=== PATIENT | male | born 1955 | race Caucasian/White ===

== ENCOUNTER 2019-01-16 23:46 | Emergency (ER) | payer BC ==
[2019-01-16] MEDS ORDERED: HYDROmorphone 2 MG/ML SDV IVPUSH ONE (23:49)
[2019-01-16] MEDS ORDERED: Ketorolac 30 MG/ML SDV IVPUSH ONE (23:49)
[2019-01-16] MEDS ORDERED: Ondansetron 4 MG/2 ML SDV IVPUSH ONE (23:49)
[2019-01-16] MEDS ORDERED: Sodium Chloride 0.9% 1,000 ML IV ONE (23:50)
[2019-01-16] MEDS ORDERED: Tamsulosin 0.4 MG Cap.ER PO ONE (23:51)
[2019-01-16] MEDS ORDERED: HYDROmorphone 2 MG/ML Syringe IVPUSH ONE (23:53)
--- NOTE | 2019-01-16 23:54 | EDM.PDOC ---
ED HPI GENERAL MEDICAL PROBLEM - General Chief Complaint: Abdominal Pain Stated Complaint: LEFT SIDE PAIN Time Seen by Provider: 01/16/19 23:49 - History of Present Illness INITIAL COMMENTS - FREE TEXT/NARRATIVE: HISTORY AND PHYSICAL: History of present illness: Patient is a 63-year-old white male presents with concern of acute left flank pain patient has nausea with no vomiting patient has history of urolithiasis denies history of diverticulitis Review of systems: As per history of present illness and below otherwise all systems reviewed and negative. Past medical history: As per history of present illness and as reviewed below otherwise noncontributory. Surgical history: As per history of present illness and as reviewed below otherwise noncontributory. Social history: No reported history of drug or alcohol abuse. Family history: As per history of present illness and as reviewed below otherwise noncontributory. Physical exam: HEENT: Atraumatic, normocephalic, pupils reactive, negative for conjunctival pallor or scleral icterus, mucous membranes moist, throat clear, neck supple, nontender, trachea midline. Lungs: Clear to auscultation, breath sounds equal bilaterally, chest nontender. Heart: S1S2, regular, negative for clicks, rubs, or JVD. Abdomen: Soft, nondistended, nontender. Negative for masses or hepatosplenomegaly. Left-sided costovertebral tenderness. Pelvis: Stable nontender. Genitourinary: Deferred. Rectal: Deferred. Extremities: Atraumatic, negative for cords or calf pain. Neurovascular unremarkable. Neuro: Awake, alert, oriented. Cranial nerves II through XII unremarkable. Cerebellum unremarkable. Motor and sensory unremarkable throughout. Exam nonfocal. Diagnostics: CBC CMP UA CT abdomen and pelvis Therapeutics: Normal saline 1 L bolus Dilaudid 1 mg IV Zofran 4 mg IV Flomax 0.4 mg by mouth and Toradol 30 mg IV Impression: #1 acute left flank pain Definitive disposition and diagnosis as appropriate pending reevaluation and review of above. - Related Data Allergies Allergy/AdvReac Type Severity Reaction Status Date / Time No Known Allergies Allergy Verified 01/16/19 23:59 Home Meds: Home Meds Aspirin [Adult Low Dose Aspirin EC] 1 tab PO DAILY 06/30/14 [History] Cinnamon Bark [Cinnamon] 1 tab PO BID 06/30/14 [History] Fish Oil/[place]-3 Fatty Acids [Fish Oil 1,000 MG] 1 tab PO DAILY 06/30/14 [ History] Folic Acid 1 tab PO DAILY 06/30/14 [History] Lisinopril/Hydrochlorothiazide [Lisinopril-Hctz 20-25 mg Tab] 1 tab PO ACBRK 11/01 [History] Metoprolol Tartrate [Lopressor] 1 tab PO BID 06/30/14 [History] Multivitamin [Multi Vitamin Daily] 1 tab PO DAILY 06/30/14 [History] amLODIPine Besylate [Amlodipine Besylate] 1 tab PO BEDTIME 06/30/14 [History] atorvaSTATin Calcium [Atorvastatin Calcium] 1 tab PO BEDTIME 06/30/14 [History] Clopidogrel [Plavix] 75 mg PO DAILY 06/16/15 [History] Lutein [Natural Lutein] 20 mg PO DAILY 06/16/15 [History] Chromium Amino Acid Chelate [Chromium] 500 mcg PO DAILY 01/17/19 [History] Fenofibric Acid (Choline) [Fenofibric Acid] 1 tab PO DAILY 01/17/19 [History] ED ROS GENERAL - Review of Systems Review Of Systems: ROS reveals no pertinent complaints other than HPI. ED EXAM, GENERAL - Physical Exam Exam: See Below (The dictation) Course - Vital Signs Last Recorded V/S: Last Vital Signs Temp 36.6 C 01/16/19 23:46 Pulse 72 01/17/19 00:32 Resp 18 01/17/19 00:32 BP 147/67 H 01/17/19 00:32 Pulse Ox 95 01/17/19 00:32 - Orders/Labs/Meds Labs: Laboratory Tests 01/16/19 01/16/19 01/17/19 Range/Units 22:55 23:50 00:20 WBC 9.49 (4.0-11.0) K/uL RBC 5.38 (4.50-5.90) M/uL Hgb 16.3 (13.0-17.0) g/dL Hct 47.1 (38.0-50.0) % MCV 87.5 (80.0-98.0) fL MCH 30.3 (27.0-32.0) pg MCHC 34.6 (31.0-37.0) g/dL RDW Std Deviation 43.9 (28.0-62.0) fl RDW Coeff of Twin 14 (11.0-15.0) % Plt Count 239 (150-400) K/uL MPV 9.40 (7.40-12.00) fL Neut % (Auto) 43.5 L (48.0-80.0) % Lymph % (Auto) 37.6 (16.0-40.0) % Stone % (Auto) 13.5 (0.0-15.0) % Eos % (Auto) 4.2 (0.0-7.0) % Baso % (Auto) 1.2 (0.0-1.5) % Neut # (Auto) 4.1 (1.4-5.7) K/uL Lymph # (Auto) 3.6 H (0.6-2.4) K/uL Stone # (Auto) 1.3 H (0.0-0.8) K/uL Eos # (Auto) 0.4 (0.0-0.7) K/uL Baso # (Auto) 0.1 (0.0-0.1) K/uL Nucleated RBC % 0.0 /100WBC Nucleated RBCs # 0 K/uL Sodium 138 (136-148) mmol/L Potassium 3.5 (3.5-5.1) mmol/L Chloride 103 (98-107) mmol/L Carbon Dioxide 27.7 (21.0-32.0) mmol/L BUN 24 H (7.0-18.0) mg/dL Creatinine 1.0 (0.8-1.3) mg/dL Est Cr Clr Drug Dosing 80.10 mL/min Estimated GFR (MDRD) > 60.0 ml/min Glucose 218 H (74-106) mg/dL Calcium 9.1 (8.5-10.1) mg/dL Total Bilirubin 0.2 (0.2-1.0) mg/dL AST 17 (15-37) IU/L ALT 30 (14-63) IU/L Alkaline Phosphatase 98 (46-116) U/L Total Protein 7.6 (6.4-8.2) g/dL Albumin 3.7 (3.4-5.0) g/dL Globulin 3.9 (2.6-4.0) g/dL Albumin/Globulin Ratio 0.9 (0.9-1.6) Urine Color YELLOW Urine Appearance CLEAR Urine pH 6.0 (5.0-8.0) Ur Specific [place] 1.020 (1.001-1.035) Urine Protein NEGATIVE (NEGATIVE) mg/dL Urine Glucose (UA) >=1000 (NEGATIVE) mg/dL Urine Ketones NEGATIVE (NEGATIVE) mg/dL Urine Occult Blood TRACE-INTACT H (NEGATIVE) Urine Nitrite NEGATIVE (NEGATIVE) Urine Bilirubin NEGATIVE (NEGATIVE) Urine Urobilinogen 0.2 (<2.0) EU/dL Ur Leukocyte Esterase NEGATIVE (NEGATIVE) Urine RBC 0-3 (0-2/HPF) Urine WBC 0-1 (0-5/HPF) Ur Epithelial Cells RARE (NONE-FEW) Urine Bacteria FEW (NEGATIVE) Urine Mucus LIGHT (NONE-MOD) Meds: Medications Discontinued Medications Generic Name Dose Route Start Last Admin Trade Name Freq PRN Reason Stop Dose Admin Hydromorphone HCl 1 mg 01/16/19 23:56 01/17/19 00:01 Dilaudid IVPUSH 01/16/19 23:57 1 mg ONETIME ONE Administration Sodium Chloride 1,000 mls @ 999 mls/hr 01/16/19 23:50 01/17/19 00:00 Normal Saline IV 01/17/19 00:50 999 mls/hr .Bolus ONE Administration Ketorolac Tromethamine 30 mg 01/16/19 23:49 01/17/19 00:00 Toradol IVPUSH 01/16/19 23:50 30 mg ONETIME ONE Administration Ondansetron HCl 4 mg 01/16/19 23:49 01/17/19 00:00 Zofran IVPUSH 01/16/19 23:50 4 mg ONETIME ONE Administration Tamsulosin HCl 0.4 mg 01/16/19 23:51 01/17/19 00:01 Flomax PO 01/16/19 23:52 0.4 mg ONETIME ONE Administration Departure - Departure Time of Disposition: 01:02 Disposition: Home, Self-Care 01 Condition: Good Clinical Impression: Nephrolithiasis - Discharge Information Forms: ED Department Discharge Additional Instructions: The following information is given to patients seen in the emergency department who are being discharged to home. This information is to outline your options for follow-up care. We provide all patients seen in our emergency department with a follow-up referral. The need for follow-up, as well as the timing and circumstances, are variable depending upon the specifics of your emergency department visit. If you don't have a primary care physician on staff, we will provide you with a referral. We always advise you to contact your personal physician following an emergency department visit to inform them of the circumstance of the visit and for follow-up with them and/or the need for any referrals to a consulting specialist. The emergency department will also refer you to a specialist when appropriate. This referral assures that you have the opportunity for followup care with a specialist. All of these measure are taken in an effort to provide you with optimal care, which includes your followup. Under all circumstances we always encourage you to contact your private physician who remains a resource for coordinating your care. When calling for followup care, please make the office aware that this follow-up is from your recent emergency room visit. If for any reason you are refused follow-up, please contact the [facility] emergency department at and asked to speak to the emergency department charge nurse. LAUREANO [facility] Specialty Care - Urology [address] [place] [id number] Push fluids follow up with urology as discussed return as needed as discussed continue current medications
[2019-01-16] MEDS ORDERED: HYDROmorphone 1 MG/ML Syringe IVPUSH ONE (23:56)
[2019-01-17 00:52] LABS: CHLORIDE,CL 103 mmol/L (98-107); SODIUM,NA 138 mmol/L (136-148)
--- NOTE | 2019-01-17 00:54 | CT ---
INDICATION: LLQ PAIN. HX OF KIDNEY STONES. CT ABDOMEN AND PELVIS WITHOUT CONTRAST TECHNIQUE: Multidetector CT imaging was performed through the abdomen and pelvis without intravenous contrast administration. Coronal and sagittal reconstructions were generated. COMPARISON: None. FINDINGS: Lower chest: Lung bases are clear. Liver: Diffuse fatty infiltration of the liver. Gallbladder and bile ducts: No gallbladder wall thickening or calcified gallstones. No biliary dilation identified. Pancreas: Unremarkable. Spleen: Normal. Adrenals: No nodules or masses. Kidneys, ureters, and urinary bladder: 11 millimeter nonobstructing stone in the lower pole collecting system of the left kidney. Mild dilation of the left kidney collecting system and left renal pelvis, and mild fullness of the left ureter. No ureteral stone identified. Mild left perinephric fat stranding. No bladder mass or definite wall thickening. Gastrointestinal tract: Normal caliber bowel without wall thickening. The appendix is normal. Vascular structures: Normal caliber abdominal aorta with mild aortoiliac atherosclerotic calcifications. Peritoneum: No free air, abscess, or significant free fluid. Lymph nodes: No pathologically enlarged nodes identified. Reproductive organs: No pelvic masses. Bones: Mild spinal degenerative changes. IMPRESSION: 1. Mild dilation of the left kidney collecting system and fullness of the left ureter, with mild left perinephric stranding. These findings may reflect recent passage of a left ureteral stone. Alternatively, but less likely, this could represent left-sided pyelonephritis. Clinical correlation is recommended. 2. Nonobstructing 11 millimeter stone in the lower pole of the left kidney. 3. Nonacute additional findings as detailed above. SUSAN WILLSON MD [employer] Dictated by Kurt Willson MD @ 01/17/2019 12:53:12 AM Dictated by: Kurt Willson MD @ 01/17/2019 00:54:07 (Electronically Signed)
[2019-01-17 01:20] VITALS: BP 125/61
== END 2019-01-17 01:15 | disposition home or self-care (01) ==
LOC: MW.ED 23:46
DX: N20.0 Calculus of kidney (principal); Z79.82 Long term (current) use of aspirin; Z79.899 Other long term (current) drug therapy; Z79.01 Long term (current) use of anticoagulants
CPT/HCPCS: 36415; 74176; 80053; 81001; 85025; 96360; 96374; 96375; 99284; A9270; J1170; J1885; J2405; J7040

== ENCOUNTER 2019-10-14 16:07 | Emergency (ER) | payer BC ==
[2019-10-14 17:56] LABS: BLOOD UREA NITROGEN,BUN 27 mg/dL (7.0-18.0); CARBON DIOXIDE,CO2 25.7 mmol/L (21.0-32.0); CHLORIDE,CL 102 mmol/L (98-107); GLUCOSE RANDOM 140 mg/dL (74-106); POTASSIUM,K 3.7 mmol/L (3.5-5.1); SODIUM,NA 136 mmol/L (136-148)
--- NOTE | 2019-10-14 18:02 | CT ---
INDICATION: Abdominal pain TECHNIQUE: CT abdomen and pelvis without contrast. COMPARISON: 07/09/2019 FINDINGS: Lower chest: A small hiatal hernia. Liver: Mild hepatic steatosis. Spleen: Unremarkable. Pancreas: Edema/fluid and mild stranding adjacent to the pancreatic tail, at least partially related to a left renal process. Gallbladder and bile ducts: Apparent gallbladder sludge. Adrenal glands: Unremarkable. Kidneys: [id number] left hydronephrosis due to a 1.3 x 1.1 x 1.0 cm calculus at the UPJ. A punctate nonobstructive left renal parenchymal calcification. A 1.2 cm left renal low-density lesion again seen, suggestive of a cyst. A partially duplicated right renal collecting system. GI tract: No bowel obstruction. No evidence of appendicitis. No significant pericolonic changes. An ovoid fat attenuation focus with thin peripheral soft tissue density again seen in the anterior left abdomen on image 50, probably sequela of old epiploic appendagitis or prior regional fat inflammation of other etiology. Vascular structures: Atherosclerotic changes. Lymph nodes: A borderline portacaval lymph node which could be reactive in the setting of hepatic steatosis. No abnormally enlarged lymph nodes. Miscellaneous: No free air. Postsurgical scarring in the inguinal regions. Pelvic Organs: Mild bladder wall thickening could be related to underdistention. Grossly stable prostate. Bones: A small sclerotic focus again seen in the right iliac wing, nonspecific. Degenerative changes in the spine with calcified disc protrusions at L1-2 and L2-3. IMPRESSION: Left obstructive uropathy due to a 1.3 cm UPJ calculus. A punctate nonobstructive left renal calcification. Fluid and stranding adjacent to the pancreatic tail is probably related to the left renal process, however correlate with pancreatic enzymes. Hepatic steatosis. Mild bladder wall thickening could be related to under distention. Correlate with urinalysis Dictated by Jose Juan Ojeda MD @ 10/14/2019 6:01:57 PM Please note that all CT scans at this facility use dose modulation, iterative reconstruction, and/or weight-based dosing when appropriate to reduce radiation dose to as low as reasonably achievable. Dictated by: Jose Juan Ojeda MD @ 10/14/2019 18:02:04 (Electronically Signed)
[2019-10-14] MEDS ORDERED: Sulfamethoxazole/Trimethoprim 800-160 MG Tab PO ONE (18:18)
--- NOTE | 2019-10-14 18:24 | CR ---
Indication: Pain. Swelling Technique: Three views of the left thumb Comparison: None Findings: Mild degenerative changes of the left thumb are identified. No fracture or subluxation is identified. A well corticated calcific density is identified along the posterior aspect of the interphalangeal joint space. No radiopaque foreign body. Impression: No radiopaque foreign body. Dictated by Tracy Noriega MD @ Oct 14 2019 6:20PM Signed by Dr. Tracy Noriega @ Oct 14 2019 6:23PM
[2019-10-14] MEDS ORDERED: cefTRIAXone 1 GM Vial IM ONE (18:29)
[2019-10-14] MEDS ORDERED: Lidocaine 1% 4 ML ONE (18:33)
--- NOTE | 2019-10-14 18:34 | EDM.PDOC ---
ED HPI GENERAL MEDICAL PROBLEM - General Chief Complaint: General Stated Complaint: POSSIBLE KIDNEY STONES/HERNIA SURGERY Time Seen by Provider: 10/14/19 18:30 Source of Information: Reports: Patient - History of Present Illness INITIAL COMMENTS - FREE TEXT/NARRATIVE: HISTORY AND PHYSICAL: History of present illness: [] presents with left flank pain 5 out of 10 nonradiating mild nausea no vomiting chills or sweats no fever no chest pain shortness breath headache dizziness palpitation no bowel or urine symptoms History of renal stones similar pain to previous Review of systems: As per history of present illness and below otherwise all systems reviewed and negative. Past medical history: As per history of present illness and as reviewed below otherwise noncontributory. Surgical history: As per history of present illness and as reviewed below otherwise noncontributory. Social history: No reported history of drug or alcohol abuse. Family history: As per history of present illness and as reviewed below otherwise noncontributory. Physical exam: HEENT: Atraumatic, normocephalic, pupils reactive, negative for conjunctival pallor or scleral icterus, mucous membranes moist, throat clear, neck supple, nontender, trachea midline. Lungs: Clear to auscultation, breath sounds equal bilaterally, chest nontender. Heart: S1S2, regular, negative for clicks, rubs, or JVD. Abdomen: Soft, nondistended, nontender. Negative for masses or hepatosplenomegaly. Negative for costovertebral tenderness. Pelvis: Stable nontender. Genitourinary: Deferred. Rectal: Deferred. Extremities: Atraumatic, negative for cords or calf pain. Neurovascular unremarkable. Neuro: Awake, alert, oriented. Cranial nerves II through XII unremarkable. Cerebellum unremarkable. Motor and sensory unremarkable throughout. Exam nonfocal. Diagnostics: [ cbc CMP UA with culture cT abdomen pelvis ] Therapeutics: [ gram Rocephin IM Bactrim double strength I did discuss patient in detail with Dr. carballo She will see the patient in the morning for stent placement She will be calling the patient to schedule the stent placement in the morning he is to be nothing by mouth after midnight ] Impression: [ 1.3 cm UPJ stone Cellulitis ] Definitive disposition and diagnosis as appropriate pending reevaluation and review of above. Left Finger-Thumb Pain Score (Numeric/FACES): 7 - Related Data Allergies Allergy/AdvReac Type Severity Reaction Status Date / Time No Known Allergies Allergy Verified 10/14/19 16:32 Home Meds: Home Meds Cinnamon Bark [Cinnamon] 1 tab PO BID 06/30/14 [History] Fish Oil/[place]-3 Fatty Acids [Fish Oil 1,000 MG] 1 tab PO BEDTIME 06/30/14 [ History] Lisinopril/Hydrochlorothiazide [Lisinopril-Hctz 20-25 mg Tab] 1 tab PO DAILY 11/01 [History] Metoprolol Tartrate [Lopressor] 100 mg PO BID 06/30/14 [History] Multivitamin [Multi Vitamin Daily] 1 tab PO BEDTIME 06/30/14 [History] amLODIPine Besylate [Amlodipine Besylate] 10 mg PO BEDTIME 06/30/14 [History] atorvaSTATin Calcium [Atorvastatin Calcium] 40 mg PO BEDTIME 06/30/14 [History] Clopidogrel [Plavix] 75 mg PO BEDTIME 06/16/15 [History] Lutein [Natural Lutein] 20 mg PO DAILY 06/16/15 [History] Chromium Amino Acid Chelate [Chromium] 500 mcg PO DAILY 01/17/19 [History] Escitalopram [Lexapro] 10 mg PO DAILY 10/14/19 [History] Fenofibric Acid (Choline) [Fenofibric Acid] 135 mg PO DAILY 10/14/19 [History] Ginkgo Biloba 60 mg PO DAILY 10/14/19 [History] Ginseng 100 mg PO DAILY 10/14/19 [History] Past Medical History Cardiovascular History: Reports: Bypass, CAD, High Cholesterol, Hypertension Respiratory History: Reports: None Genitourinary History: Reports: Renal Calculus Musculoskeletal History: Reports: Fracture Other Musculoskeletal History: R ankle Neurological History: Reports: None Psychiatric History: Reports: Anxiety Endocrine/Metabolic History: Reports: Obesity/BMI 30+ Hematologic History: Reports: None Immunologic History: Reports: None Oncologic (Cancer) History: Reports: None Dermatologic History: Reports: None - Infectious Disease History Infectious Disease History: Reports: Chicken Pox - Past Surgical History HEENT Surgical History: Reports: Oral Surgery, Tonsillectomy GI Surgical History: Reports: Colonoscopy, Hernia, Abdominal, Hernia Repair/ Other Male Surgical History: Reports: Lithotripsy (ESWL), Renal Calculus Social & Family History - Family History Family Medical History: Noncontributory - Tobacco Use Smoking Status *Q: Never Smoker - Recreational Drug Use Recreational Drug Use: No ED ROS GENERAL - Review of Systems Review Of Systems: See Below ED EXAM, GENERAL - Physical Exam Exam: See Below Course - Vital Signs Last Recorded V/S: Last Vital Signs Temp 98.0 F 10/14/19 16:27 Pulse 83 10/14/19 16:27 Resp 18 10/14/19 16:27 BP 153/71 H 10/14/19 16:27 Pulse Ox 95 10/14/19 16:27 - Orders/Labs/Meds Orders: Active Orders 24 hr Category Date Time Status CULTURE URINE [RM] Stat Lab 10/14/19 16:49 Received CULTURE WOUND [RM] Stat Lab 10/14/19 17:45 Received UA RFX CHRISTIANO AND CULT IF INDIC [URIN] Stat Lab 10/14/19 16:52 Ordered cefTRIAXone [Rocephin] Med 10/14/19 18:29 Once 1 gm IM ONETIME ONE Labs: Laboratory Tests 10/14/19 10/14/19 10/14/19 Range/Units 16:49 17:10 17:10 WBC 15.55 H (4.0-11.0) K/uL RBC 5.35 (4.50-5.90) M/uL Hgb 15.8 (13.0-17.0) g/dL Hct 45.6 (38.0-50.0) % MCV 85.2 (80.0-98.0) fL MCH 29.5 (27.0-32.0) pg MCHC 34.6 (31.0-37.0) g/dL RDW Std Deviation 43.0 (28.0-62.0) fl RDW Coeff of Twin 14 (11.0-15.0) % Plt Count 231 (150-400) K/uL MPV 9.20 (7.40-12.00) fL Neut % (Auto) 75.1 (48.0-80.0) % Lymph % (Auto) 11.4 L (16.0-40.0) % [place] % (Auto) 12.0 (0.0-15.0) % Eos % (Auto) 1.1 (0.0-7.0) % Baso % (Auto) 0.4 (0.0-1.5) % Neut # (Auto) 11.7 H (1.4-5.7) K/uL Lymph # (Auto) 1.8 (0.6-2.4) K/uL [place] # (Auto) 1.9 H (0.0-0.8) K/uL Eos # (Auto) 0.2 (0.0-0.7) K/uL Baso # (Auto) 0.1 (0.0-0.1) K/uL Nucleated RBC % 0.0 /100WBC Nucleated RBCs # 0 K/uL Sodium 136 (136-148) mmol/L Potassium 3.7 (3.5-5.1) mmol/L Chloride 102 (98-107) mmol/L Carbon Dioxide 25.7 (21.0-32.0) mmol/L BUN 27 H (7.0-18.0) mg/dL Creatinine 0.9 (0.8-1.3) mg/dL Est Cr Clr Drug Dosing 82.33 mL/min Estimated GFR (MDRD) > 60.0 ml/min Glucose 140 H (74-106) mg/dL Calcium 9.5 (8.5-10.1) mg/dL Total Bilirubin 0.5 (0.2-1.0) mg/dL AST 17 (15-37) IU/L ALT 33 (14-63) IU/L Alkaline Phosphatase 76 (46-116) U/L Total Protein 8.2 (6.4-8.2) g/dL Albumin 3.6 (3.4-5.0) g/dL Globulin 4.6 H (2.6-4.0) g/dL Albumin/Globulin Ratio 0.8 L (0.9-1.6) Lipase (73-393) U/L Urine Color YELLOW Urine Appearance SLT CLOUDY Urine pH 5.5 (5.0-8.0) Ur Specific [place] 1.025 (1.001-1.035) Urine Protein TRACE H (NEGATIVE) mg/dL Urine Glucose (UA) NEGATIVE (NEGATIVE) mg/dL Urine Ketones NEGATIVE (NEGATIVE) mg/dL Urine Occult Blood LARGE H (NEGATIVE) Urine Nitrite NEGATIVE (NEGATIVE) Urine Bilirubin NEGATIVE (NEGATIVE) Urine Urobilinogen 0.2 (<2.0) EU/dL Ur Leukocyte Esterase SMALL H (NEGATIVE) Urine RBC 20-30 (0-2/HPF) Urine WBC 4-7 (0-5/HPF) Ur Epithelial Cells RARE (NONE-FEW) Urine Bacteria FEW (NEGATIVE) 10/14/19 Range/Units 17:10 WBC (4.0-11.0) K/uL RBC (4.50-5.90) M/uL Hgb (13.0-17.0) g/dL Hct (38.0-50.0) % MCV (80.0-98.0) fL MCH (27.0-32.0) pg MCHC (31.0-37.0) g/dL RDW Std Deviation (28.0-62.0) fl RDW Coeff of Twin (11.0-15.0) % Plt Count (150-400) K/uL MPV (7.40-12.00) fL Neut % (Auto) (48.0-80.0) % Lymph % (Auto) (16.0-40.0) % [place] % (Auto) (0.0-15.0) % Eos % (Auto) (0.0-7.0) % Baso % (Auto) (0.0-1.5) % Neut # (Auto) (1.4-5.7) K/uL Lymph # (Auto) (0.6-2.4) K/uL [place] # (Auto) (0.0-0.8) K/uL Eos # (Auto) (0.0-0.7) K/uL Baso # (Auto) (0.0-0.1) K/uL Nucleated RBC % /100WBC Nucleated RBCs # K/uL Sodium (136-148) mmol/L Potassium (3.5-5.1) mmol/L Chloride (98-107) mmol/L Carbon Dioxide (21.0-32.0) mmol/L BUN (7.0-18.0) mg/dL Creatinine (0.8-1.3) mg/dL Est Cr Clr Drug Dosing mL/min Estimated GFR (MDRD) ml/min Glucose (74-106) mg/dL Calcium (8.5-10.1) mg/dL Total Bilirubin (0.2-1.0) mg/dL AST (15-37) IU/L ALT (14-63) IU/L Alkaline Phosphatase (46-116) U/L Total Protein (6.4-8.2) g/dL Albumin (3.4-5.0) g/dL Globulin (2.6-4.0) g/dL Albumin/Globulin Ratio (0.9-1.6) Lipase 95 (73-393) U/L Urine Color Urine Appearance Urine pH (5.0-8.0) Ur Specific [place] (1.001-1.035) Urine Protein (NEGATIVE) mg/dL Urine Glucose (UA) (NEGATIVE) mg/dL Urine Ketones (NEGATIVE) mg/dL Urine Occult Blood (NEGATIVE) Urine Nitrite (NEGATIVE) Urine Bilirubin (NEGATIVE) Urine Urobilinogen (<2.0) EU/dL Ur Leukocyte Esterase (NEGATIVE) Urine RBC (0-2/HPF) Urine WBC (0-5/HPF) Ur Epithelial Cells (NONE-FEW) Urine Bacteria (NEGATIVE) Meds: Medications Discontinued Medications Generic Name Dose Route Start Last Admin Trade Name Freq PRN Reason Stop Dose Admin Trimethoprim/Sulfamethoxazole 1 tab 10/14/19 18:18 10/14/19 18:22 Septra Ds PO 10/14/19 18:19 1 tab ONETIME ONE Administration Departure - Departure Time of Disposition: 18:32 Disposition: Home, Self-Care 01 Condition: Good Clinical Impression: Obstruction of ureteropelvic junction (UPJ) due to stone, Cellulitis - Discharge Information Referrals: Yuliya Crum [Primary Care Provider] - Additional Instructions: Dr. freeman urology Jerome will be calling you in the a.m. to schedule stent placement for the obstructing stone Return if symptoms persist or worsen No food or drink after midnight Medication as prescribed The following information is given to patients seen in the emergency department who are being discharged to home. This information is to outline your options for follow-up care. We provide all patients seen in our emergency department with a follow-up referral. The need for follow-up, as well as the timing and circumstances, are variable depending upon the specifics of your emergency department visit. If you don't have a primary care physician on staff, we will provide you with a referral. We always advise you to contact your personal physician following an emergency department visit to inform them of the circumstance of the visit and for follow-up with them and/or the need for any referrals to a consulting specialist. The emergency department will also refer you to a specialist when appropriate. This referral assures that you have the opportunity for follow-up care with a specialist. All of these measure are taken in an effort to provide you with optimal care, which includes your follow-up. Under all circumstances we always encourage you to contact your private physician who remains a resource for coordinating your care. When calling for follow-up care, please make the office aware that this follow-up is from your recent emergency room visit. If for any reason you are refused follow-up, please contact the [facility] emergency department at and asked to speak to the emergency department charge nurse. - My Orders Last 24 Hours: My Active Orders 10/14/19 16:49 CULTURE URINE [RM] Stat 10/14/19 16:52 UA RFX CHRISTIANO AND CULT IF INDIC [URIN] Stat 10/14/19 17:45 CULTURE WOUND [RM] Stat 10/14/19 18:29 cefTRIAXone [Rocephin] 1 gm IM ONETIME ONE - Assessment/Plan Last 24 Hours: My Active Orders 10/14/19 16:49 CULTURE URINE [RM] Stat 10/14/19 16:52 UA RFX CHRISTIANO AND CULT IF INDIC [URIN] Stat 10/14/19 17:45 CULTURE WOUND [RM] Stat 10/14/19 18:29 cefTRIAXone [Rocephin] 1 gm IM ONETIME ONE
[2019-10-14 19:04] VITALS: BP 146/69; PULSE 82
== END 2019-10-14 19:01 | disposition home or self-care (01) ==
LOC: MW.ED 16:07
DX: N13.2 Hydronephrosis with renal and ureteral calculous obstruction (principal); L03.90 Cellulitis, unspecified; E78.00 Pure hypercholesterolemia, unspecified; I10 Essential (primary) hypertension; I25.10 Atherosclerotic heart disease of native coronary artery without angina pectoris; E66.9 Obesity, unspecified; Z79.899 Other long term (current) drug therapy; Z79.02 Long term (current) use of antithrombotics/antiplatelets; Z68.36 Body mass index [BMI] 36.0-36.9, adult
CPT/HCPCS: 36415; 73140; 74176; 80053; 81001; 83690; 85025; 87070; 87086; 96374; 99284; A9270; J0696; 87186

== ENCOUNTER 2021-02-04 17:46 | Emergency (ER) | payer BC ==
[2021-02-04] MEDS ORDERED: Sodium Chloride 0.9% 10 ML SDV IV PRN (17:49)
[2021-02-04] MEDS ORDERED: Sodium Chloride 0.9% 2.5 ML Syringe FLUSH PRN (17:49)
[2021-02-04] MEDS ORDERED: Sodium Chloride 0.9% 10 ML Syringe FLUSH PRN (17:49)
[2021-02-04] MEDS ORDERED: predniSONE 20 MG Tab PO ONE (17:54)
--- NOTE | 2021-02-04 17:59 | EDM.PDOC ---
ED HPI GENERAL MEDICAL PROBLEM - General Chief Complaint: Neuro Symptoms/Deficits Stated Complaint: CANT FEEL RT SIDE OF HIS FACE NUMB Time Seen by Provider: 02/04/21 17:52 Source of Information: Reports: Patient History Limitations: Reports: No Limitations - History of Present Illness INITIAL COMMENTS - FREE TEXT/NARRATIVE: Patient is a 65-year-old male who presents today for right-sided facial numbness and inability to close right eye. 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 When he finished work he decided to the hospital. Patient denies any vision changes any extremity weakness or numbness or other neurologic complaints. Patient has never had this before has not gone camping or had any bug bites. - Related Data Allergies Allergy/AdvReac Type Severity Reaction Status Date / Time No Known Allergies Allergy Verified 02/04/21 18:20 Home Meds: Home Meds Cinnamon Bark [Cinnamon] 1 tab PO BID 06/30/14 [History] Fish Oil/[place]-3 Fatty Acids [Fish Oil 1,000 MG] 1 tab PO BEDTIME 06/30/14 [History] Lisinopril/Hydrochlorothiazide [Lisinopril-Hctz 20-25 mg Tab] 1 tab PO DAILY 06/30/14 [History] Metoprolol Tartrate [Lopressor] 100 mg PO BID 06/30/14 [History] Multivitamin [Multi Vitamin Daily] 1 tab PO BEDTIME 06/30/14 [History] amLODIPine Besylate [Amlodipine Besylate] 10 mg PO BEDTIME 06/30/14 [History] atorvaSTATin Calcium [Atorvastatin Calcium] 40 mg PO BEDTIME 06/30/14 [History] Clopidogrel [Plavix] 75 mg PO BEDTIME 06/16/15 [History] Lutein [Natural Lutein] 20 mg PO DAILY 06/16/15 [History] Chromium Amino Acid Chelate [Chromium] 500 mcg PO DAILY 01/17/19 [History] Escitalopram [Lexapro] 10 mg PO DAILY 10/14/19 [History] Fenofibric Acid (Choline) [Fenofibric Acid] 135 mg PO DAILY 10/14/19 [History] Ginkgo Biloba 60 mg PO DAILY 10/14/19 [History] Ginseng 100 mg PO DAILY 10/14/19 [History] Dextran 70/Hypromellose [Artificial Tears Eye Drops] 15 ml OP Q4HR 7 Days #1 drops 02/04/21 [Rx] predniSONE 60 mg PO DAILYBH 6 Days #18 tab 02/04/21 [Rx] Past Medical History Cardiovascular History: Reports: Bypass, CAD, High Cholesterol, Hypertension Respiratory History: Reports: None Genitourinary History: Reports: Renal Calculus Musculoskeletal History: Reports: Fracture Other Musculoskeletal History: R ankle Neurological History: Reports: None Psychiatric History: Reports: Anxiety Endocrine/Metabolic History: Reports: Obesity/BMI 30+ Hematologic History: Reports: None Immunologic History: Reports: None Oncologic (Cancer) History: Reports: None Dermatologic History: Reports: None - Infectious Disease History Infectious Disease History: Reports: Chicken Pox - Past Surgical History HEENT Surgical History: Reports: Oral Surgery, Tonsillectomy GI Surgical History: Reports: Colonoscopy, Hernia, Abdominal, Hernia Repair/Other Male Surgical History: Reports: Lithotripsy (ESWL), Renal Calculus Social & Family History - Family History Family Medical History: No Pertinent Family History ED ROS GENERAL - Review of Systems Review Of Systems: See Below Constitutional: Reports: No Symptoms HEENT: Reports: No Symptoms Respiratory: Reports: No Symptoms Cardiovascular: Reports: No Symptoms Endocrine: Reports: No Symptoms GI/Abdominal: Reports: No Symptoms : Reports: No Symptoms Musculoskeletal: Reports: No Symptoms Skin: Reports: No Symptoms Neurological: Reports: Numbness Psychiatric: Reports: No Symptoms Hematologic/Lymphatic: Reports: No Symptoms Immunologic: Reports: No Symptoms ED EXAM, NEURO - Physical Exam Exam: See Below Exam Limited By: No Limitations General Appearance: Alert, WD/WN, No Apparent Distress Eye Exam: Bilateral Eye: EOMI, PERRL Throat/Mouth: Normal Inspection, Normal Oropharynx Head Exam: Atraumatic, Normocephalic Neck: Normal Inspection Respiratory/Chest: No Respiratory Distress, Lungs Clear Cardiovascular: Normal Peripheral Pulses, Regular Rate, Rhythm, No Edema GI/Abdominal: Normal Bowel Sounds, Soft, Non-Tender Neurological: Alert, Normal Mood/Affect, Normal Dorsiflexion, CN II-XII Intact, Normal Gait, Normal Reflexes, No Motor/Sensory Deficits, Oriented x 3, Other (right eye does not close completely, right forehead does not move completely) #1 Interpretation EKG Date: 02/04/21 Time: 17:50 Rhythm: NSR Rate (Beats/Min): 81 ST-T: Normal Course - Vital Signs Last Recorded V/S: Last Vital Signs Temp 97 F 02/04/21 17:49 Pulse 85 02/04/21 17:49 Resp 16 02/04/21 17:49 BP 231/102 H 02/04/21 17:49 Pulse Ox 97 02/04/21 17:49 - Orders/Labs/Meds Orders: Active Orders 24 hr Category Date Time Status Assess Neurological Status [RC] ASDIRECTED Care 02/04/21 17:49 Active Cardiac Monitoring [RC] . DIRECTED Care 02/04/21 17:49 Active EKG Documentation Completion [RC] STAT Care 02/04/21 17:49 Active Initiate Acute Stroke Protocol [RC] STAT Care 02/04/21 17:49 Active NIH Stroke Scale [RC] ASDIRECTED Care 02/04/21 17:49 Active Oxygen Therapy [RC] ASDIRECTED Care 02/04/21 17:49 Active UA W/MICROSCOPIC [URIN] Stat Lab 02/04/21 17:50 Ordered Sodium Chloride 0.9% [Normal Saline] Med 02/04/21 17:49 Active 10 ml IV ASDIRECTED PRN Sodium Chloride 0.9% [Saline Flush] Med 02/04/21 17:49 Active 10 ml FLUSH ASDIRECTED PRN Sodium Chloride 0.9% [Saline Flush] Med 02/04/21 17:49 Active 2.5 ml FLUSH ASDIRECTED PRN Peripheral IV Insertion Adult [OM.PC] Stat Oth 02/04/21 17:49 Ordered Medication Orders Sodium Chloride (Sodium Chloride 0.9% 10 Ml Syringe) 10 ml FLUSH ASDIRECTED PRN PRN Reason: Keep Vein Open Last Admin: 02/04/21 18:15 Dose: 10 ml Documented by: HANSMAC Sodium Chloride (Sodium Chloride 0.9% 2.5 Ml Syringe) 2.5 ml FLUSH ASDIRECTED PRN PRN Reason: Keep Vein Open Last Admin: 02/04/21 18:15 Dose: 2.5 ml Documented by: HANSMAC Sodium Chloride (Sodium Chloride 0.9% 10 Ml Sdv) 10 ml IV ASDIRECTED PRN PRN Reason: IV Use Labs: Laboratory Tests 02/04/21 02/04/21 02/04/21 Range/Units 17:56 17:56 17:56 WBC 9.05 (4.0-11.0) K/uL RBC 5.84 (4.50-5.90) M/uL Hgb 17.6 H (13.0-17.0) g/dL Hct 50.1 H (38.0-50.0) % MCV 85.8 (80.0-98.0) fL MCH 30.1 (27.0-32.0) pg MCHC 35.1 (31.0-37.0) g/dL RDW Std Deviation 42.5 (28.0-62.0) fl RDW Coeff of [place] 14 (11.0-15.0) % Plt Count 234 (150-400) K/uL MPV 9.70 (7.40-12.00) fL Neut % (Auto) 39.8 L (48.0-80.0) % Lymph % (Auto) 40.0 (16.0-40.0) % [place] % (Auto) 13.8 (0.0-15.0) % Eos % (Auto) 5.3 (0.0-7.0) % Baso % (Auto) 1.1 (0.0-1.5) % Neut # (Auto) 3.6 (1.4-5.7) K/uL Lymph # (Auto) 3.6 H (0.6-2.4) K/uL [place] # (Auto) 1.3 H (0.0-0.8) K/uL Eos # (Auto) 0.5 (0.0-0.7) K/uL Baso # (Auto) 0.1 (0.0-0.1) K/uL Nucleated RBC % 0.0 /100WBC Nucleated RBCs # 0 K/uL INR 1.03 APTT 23.6 (18.6-31.3) SEC Sodium 136 (136-148) mmol/L Potassium 3.8 (3.5-5.1) mmol/L Chloride 98 (98-107) mmol/L Carbon Dioxide 23.6 (21.0-32.0) mmol/L BUN 17 (7.0-18.0) mg/dL Creatinine 1.0 (0.8-1.3) mg/dL Est Cr Clr Drug Dosing 68.23 mL/min Estimated GFR (MDRD) > 60.0 ml/min Glucose 347 H (74-106) mg/dL Calcium 9.5 (8.5-10.1) mg/dL Total Bilirubin 0.4 (0.2-1.0) mg/dL AST 20 (15-37) IU/L ALT 49 (14-63) IU/L Alkaline Phosphatase 121 H (46-116) U/L Troponin I < 0.050 (0.000-0.056) ng/mL Total Protein 8.5 H (6.4-8.2) g/dL Albumin 4.2 (3.4-5.0) g/dL Globulin 4.3 H (2.6-4.0) g/dL Albumin/Globulin Ratio 1.0 (0.9-1.6) TSH 3rd Generation 2.23 (0.36-3.74) uIU/mL Meds: Medications Generic Name Dose Route Start Last Admin Trade Name Freq PRN Reason Stop Dose Admin Sodium Chloride 10 ml 02/04/21 17:49 02/04/21 18:15 Sodium Chloride 0.9% 10 Ml Syringe FLUSH 10 ml ASDIRECTED PRN Administration Keep Vein Open Sodium Chloride 2.5 ml 02/04/21 17:49 02/04/21 18:15 Sodium Chloride 0.9% 2.5 Ml Syringe FLUSH 2.5 ml ASDIRECTED PRN Administration Keep Vein Open Sodium Chloride 10 ml 02/04/21 17:49 Sodium Chloride 0.9% 10 Ml Sdv IV ASDIRECTED PRN IV Use Discontinued Medications Generic Name Dose Route Start Last Admin Trade Name Freq PRN Reason Stop Dose Admin Prednisone 60 mg 02/04/21 17:54 02/04/21 18:14 Prednisone 20 Mg Tab PO 02/04/21 17:55 60 mg ONETIME ONE Administration - Re-Assessments/Exams Free Text/Narrative Re-Assessment/Exam: 02/04/21 18:55 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 Patient understands the diagnosis and is okay for discharge. Departure - Departure Time of Disposition: 18:55 Disposition: Home, Self-Care 01 Condition: Good Clinical Impression: Armstrong's palsy - Discharge Information *PRESCRIPTION DRUG MONITORING PROGRAM REVIEWED*: Not Applicable *COPY OF PRESCRIPTION DRUG MONITORING REPORT IN PATIENT DONNA: Not Applicable Prescriptions: Dextran 70/Hypromellose [Artificial Tears Eye Drops] 15 ml OP Q4HR 7 Days #1 drops predniSONE 60 mg PO DAILYBH 6 Days #18 tab Instructions: Armstrong Palsy, Adult Referrals: Iona Arauz MD [Primary Care Provider] - Forms: ED Department Discharge Additional Instructions: The following information is given to patients seen in the emergency department who are being discharged to home. This information is to outline your options for follow-up care. We provide all patients seen in our emergency department with a follow-up referral. The need for follow-up, as well as the timing and circumstances, are variable depending upon the specifics of your emergency department visit. If you don't have a primary care physician on staff, we will provide you with a referral. We always advise you to contact your personal physician following an emergency department visit to inform them of the circumstance of the visit and for follow-up with them and/or the need for any referrals to a consulting specialist. The emergency department will also refer you to a specialist when appropriate. This referral assures that you have the opportunity for follow-up care with a specialist. All of these measure are taken in an effort to provide you with optimal care, which includes your follow-up. Under all circumstances we always encourage you to contact your private physician who remains a resource for coordinating your care. When calling for follow-up care, please make the office aware that this follow-up is from your recent emergency room visit. If for any reason you are refused follow-up, please contact the [facility] Emergency Department at and asked to speak to the emergency department charge nurse. Please follow up with your primary care physician. If you do not have a primary care physician, see below: [facility] [address] [place] [id number] [facility] [address] [place] [id number] Please follow-up with a primary animal care attendant at the finish the course. Take the steroids for the next 6 days. It may take some time for you to regain the sensation back in your face. We also want you to apply a piece of tape at night to help "dry visualized is open can become dry. Also place eyedrops in the eye because it may be difficult for you to blink while surface Armstrong's palsy. If you have any change in vision numbness weakness in your extremities please return to the ED immediately. Sepsis Event Note (ED) - Focused Exam Vital Signs: Vital Signs Temp Pulse Resp BP Pulse Ox Pulse Ox 02/04/21 17:49 97 F 85 16 231/102 H 97 97 - Assessment/Plan Plan: Patient is a 62-year-old male presents today with right-sided facial numbness. Patient seems to have possible Armstrong's palsy instead of stroke. Patient has no vision change or other neurologic complaints. Will start patient on steroids. Patient already has CT head will wait for imaging return.
--- NOTE | 2021-02-04 18:28 | CT ---
INDICATION: Facial droop. TECHNIQUE: CT of the head without contrast. Coronal and sagittal reformats are included. COMPARISON: None. FINDINGS: No CT evidence of acute cortical infarct. No loss of chacon white matter differentiation. No hyperdense vessels to suggest intracranial thrombus. No acute intracranial hemorrhage. No mass effect or midline shift. No hydrocephalus or extra-axial collections. Mild generalized parenchymal volume loss. White-matter hypoattenuation, typical for chronic microvascular ischemic changes. No acute osseous abnormalities. Mastoid air cells and paranasal sinuses are clear. Normal soft tissues. IMPRESSION: IMPRESSION:1. No CT evidence of acute cortical infarct. No acute intracranial hemorrhage. No other acute intracranial findings. Please note that all CT scans at this facility use dose modulation, iterative reconstruction, and/or weight-based dosing when appropriate to reduce radiation dose to as low as reasonably achievable. Dictated by Eloy Marquez MD @ Feb 04 2021 6:24PM Signed by Dr. Eloy Marquez @ Feb 04 2021 6:26PM
[2021-02-04 18:47] LABS: BLOOD UREA NITROGEN,BUN 17 mg/dL (7.0-18.0); CARBON DIOXIDE,CO2 23.6 mmol/L (21.0-32.0); CHLORIDE,CL 98 mmol/L (98-107); GLUCOSE RANDOM 347 mg/dL (74-106); POTASSIUM,K 3.8 mmol/L (3.5-5.1); SODIUM,NA 136 mmol/L (136-148)
[2021-02-04 23:46] VITALS: BP 162/78; PULSE 75
== END 2021-02-04 19:17 | disposition home or self-care (01) ==
LOC: MW.ED 17:46
DX: G51.0 Bell's palsy (principal); R73.9 Hyperglycemia, unspecified; I25.10 Atherosclerotic heart disease of native coronary artery without angina pectoris; E78.00 Pure hypercholesterolemia, unspecified; I10 Essential (primary) hypertension; E66.9 Obesity, unspecified; Z68.41 Body mass index [BMI] 40.0-44.9, adult; Z79.02 Long term (current) use of antithrombotics/antiplatelets; Z79.899 Other long term (current) drug therapy
CPT/HCPCS: 36415; 70450; 80053; 84443; 84484; 85025; 85610; 85730; 93005; 99284; A9270; 93010

== ENCOUNTER 2021-07-05 06:26 | Day surgery (SDC) | payer BC ==
[~2021-07-05 06:26] MED LIST: Lactated Ringers 1,000 ML IV SCH; Sodium Chloride 0.9% 10 ML SDV IV PRN; Sodium Chloride 0.9% 10 ML Syringe FLUSH PRN; Sodium Chloride 0.9% 2.5 ML Syringe FLUSH PRN
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
[2021-07-05] MEDS ORDERED: propofoL 50 ML ONE (07:21)
[2021-07-05] MEDS ORDERED: Lidocaine 2% 5 ML SDV ONE (07:26)
--- NOTE | 2021-07-05 08:33 | PCM.OPNOTE ---
- General Post-Op/Procedure Note Date of Surgery/Procedure: 07/05/21 Operative Procedure(s): Screening colonoscopy Findings: Grade IV hemorrhoids Pre Op Diagnosis: Screening colonoscopy Post-Op Diagnosis: Grade IV hemorrhoids Anesthesia Technique: CANDELARIA Primary Surgeon: Manuela Jarquin Condition: Good
--- NOTE | 2021-07-05 08:34 | PCM.POSTAN ---
POST ANESTHESIA ASSESSMENT - MENTAL STATUS Mental Status: Somnolent - VITAL SIGNS Vital Signs: Last Vital Signs Temp 97.5 F 07/05/21 06:45 Pulse 79 07/05/21 06:45 Resp 16 07/05/21 06:45 BP 152/77 H 07/05/21 06:45 Pulse Ox 97 07/05/21 06:45 - RESPIRATORY Respiratory Status: Respiratory Rate WNL, Airway Patent, O2 Saturation Stable - CARDIOVASCULAR CV Status: Pulse Rate WNL, Blood Pressure Stable - GASTROINTESTINAL GI Status: No Symptoms - PAIN Free Text/Narrative:: Resting comfortably - POST OP HYDRATION Hydration Status: Adequate & Stable
--- NOTE | 2021-07-05 08:48 | PCM48HPAN ---
Post Anesthesia Note - EVALUATION WITHIN 48HRS OF ANESTHETIC Vital Signs in Normal Range: Yes Patient Participated in Evaluation: Yes Respiratory Function Stable: Yes Airway Patent: Yes Cardiovascular Function Stable: Yes Hydration Status Stable: Yes Pain Control Satisfactory: Yes Nausea and Vomiting Control Satisfactory: Yes Mental Status Recovered: Yes Vital Signs: Last Vital Signs Temp 97.5 F 07/05/21 06:45 Pulse 79 07/05/21 06:45 Resp 16 07/05/21 06:45 BP 152/77 H 07/05/21 06:45 Pulse Ox 97 07/05/21 06:45 - COMMENTS/OBSERVATIONS Free Text/Narrative:: Pt doing well post-op. VSS. No apparent anesthetic complications. Dr. Rusty Trotter
[2021-07-05 09:16] VITALS: BP 117/58; PULSE 71
--- NOTE | 2021-07-05 09:29 | OR ---
SURGEON: MANUELA JARQUIN MD DATE OF PROCEDURE: 07/05/2021 PREOPERATIVE DIAGNOSIS: Screening colonoscopy. POSTOPERATIVE DIAGNOSIS: Screening colonoscopy. PROCEDURE PERFORMED: Screening colonoscopy. PRIMARY SURGEON: Manuela Jarquin MD ANESTHESIA: MAC. INSTRUMENT USED: Olympus colonoscope. EXTENT OF EXAM: To the cecum. PREPARATION: Good. LIMITATIONS: None. INDICATIONS FOR EXAMINATION: The patient is a 66-year-old male who presents for screening colonoscopy. He had 1 approximately 10 years ago. He is unsure if he had polyps or not. The patient and I discussed the need for repeat colonoscopy. I explained the procedure, expected perioperative course, and the risks. He verbalized understanding and wishes to proceed. PROCEDURE IN DETAIL: The patient was brought to the endoscopy suite and placed in the left lateral decubitus position. A time-out was completed verifying the patient's name, age, date of , allergies, and procedure to be performed. Monitored anesthesia care was induced and continuous oxygen was provided via nasal cannula throughout the procedure. After adequate sedation was achieved, a digital rectal exam was performed. This exam revealed grade 4 hemorrhoids. A well-lubricated colonoscope was inserted in the rectum and advanced under direct visualization to the level of the cecum. The cecum was identified by both visual and anatomic landmarks. A photograph was taken of the cecal cap as well. However, I was unable to retroflex the scope within the cecum due to looping of the scope more proximally. The scope was then fully withdrawn while examining the color, texture, anatomy, and integrity of mucosa from the cecum to the anal canal. A small amount of liquid stool was found throughout the colon. This was irrigated and suctioned down. I was able to get a good look at the mucosa. There were no abnormalities identified. The scope was then brought into the rectum and retroflexed to allow visualization of the anal canal opening. Again, I noted enlarged internal hemorrhoids. A photograph of this was taken. The scope was straightened out and fully withdrawn. The cecum to anus time was 12 minutes. The patient tolerated the procedure well and was transferred to the PACU in stable condition. ENDOSCOPIC DIAGNOSIS: Grade 4 hemorrhoids. RECOMMENDATIONS: I will visit with the patient in the postoperative area regarding hemorrhoidal disease. Repeat colonoscopy in 10 years. ARACELI / NATE /[id number]
== END 2021-07-05 09:14 | disposition home or self-care (01) ==
LOC: MW.SDS 06:26
PROVIDERS: ATTEND Surgery
DX: Z12.11 Encounter for screening for malignant neoplasm of colon (principal); K64.3 Fourth degree hemorrhoids; I25.10 Atherosclerotic heart disease of native coronary artery without angina pectoris; E78.00 Pure hypercholesterolemia, unspecified; I10 Essential (primary) hypertension; E11.9 Type 2 diabetes mellitus without complications; E55.9 Vitamin D deficiency, unspecified; E66.9 Obesity, unspecified; Z68.35 Body mass index [BMI] 35.0-35.9, adult; Z79.84 Long term (current) use of oral hypoglycemic drugs; Z79.899 Other long term (current) drug therapy
CPT/HCPCS: 45378; 82947; J2704; J7120; 00812

== ENCOUNTER 2023-10-17 23:07 | Emergency (ER) | payer MEDICARE, BC ==
[2023-10-17] MEDS ORDERED: Ondansetron 4 MG/2 ML SDV IVPUSH STA (23:35)
[2023-10-17] MEDS ORDERED: Ketorolac 30 MG/ML SDV IVPUSH STA (23:37)
[2023-10-18 00:28] LABS: BASOPHILS ABSOLUTE AUTO 0.04 K/uL (0.00-0.20); BASOPHILS PERCENT AUTO 0.4 % (0.0-1.0); EOSINOPHILS ABSOLUTE AUTO 0.14 K/uL (0.00-0.45); EOSINOPHILS PERCENT AUTO 1.4 % (0.0-6.0); HEMATOCRIT 52.6 % (42.0-52.0); HEMOGLOBIN 18.3 g/dL (14.0-18.0); IMMATURE GRAN ABSOLUTE AUTO 0.03 K/uL (0.00-0.05); IMMATURE GRAN PERCENT AUTO 0.3 % (0.0-0.4); LYMPHOCYTES ABSOLUTE AUTO 0.56 K/uL (1.00-4.80); LYMPHOCYTES PERCENT AUTO 5.7 % (24.0-44.0); MEAN CORPUSCULAR HEMOGLOBIN 30.7 pg (28.0-32.0); MEAN CORPUSCULAR HGB CONC 34.8 g/dL (32.0-36.0); MEAN CORPUSCULAR VOLUME 88.1 fL (83.0-99.0); MEAN PLATELET VOLUME 8.8 fL (9.4-12.4); MONOCYTES ABSOLUTE AUTO 0.89 K/uL (0.00-0.80); MONOCYTES PERCENT AUTO 9.1 % (0.0-8.0); NEUTROPHILS ABSOLUTE AUTO 8.09 K/uL (1.80-7.70); NEUTROPHILS PERCENT AUTO 83.1 % (41.0-71.0); PLATELET COUNT,PLT 196 K/uL (150-400); RED BLOOD CELL COUNT 5.97 M/uL (4.52-5.90); WHITE BLOOD CELL COUNT,WBC 9.75 K/uL (3.9-11.3)
[2023-10-18 00:55] LABS: A/G RATIO 0.9 (0.9-1.6); ALBUMIN 3.9 g/dL (3.4-5.0); BILIRUBIN TOTAL 0.8 mg/dL (0.2-1.0); CALCIUM 9.6 mg/dL (8.5-10.1); CARBON DIOXIDE,CO2 27.6 mmol/L (21.0-32.0); CREATININE 0.9 mg/dL (0.8-1.3); EST CRCL DRUG DOSING (CG) 72.86 mL/min; POTASSIUM,K 3.7 mmol/L (3.5-5.1); PROTEIN TOTAL,TP 8.1 g/dL (6.4-8.2)
[2023-10-18 01:05] LABS: APPEARANCE,URINE CLOUDY; COLOR,URINE BROWN; GLUCOSE,URINE >=1000 mg/dL (NEGATIVE); KETONES,URINE 40 mg/dL (NEGATIVE); LEUKOCYTE ESTERASE,URINE NEGATIVE (NEGATIVE); NITRITE,URINE NEGATIVE (NEGATIVE); OCCULT BLOOD,URINE MODERATE (NEGATIVE); PH,URINE 5.5 (5.0-8.0); PROTEIN,URINE 30 mg/dL (NEGATIVE); UROBILINOGEN,URINE 0.2 EU/dL (<2.0)
[2023-10-18 01:06] LABS: BILIRUBIN,URINE SMALL (NEGATIVE)
[2023-10-18 01:13] LABS: BACTERIA,URINE 1+ (NEGATIVE); EPITHELIAL CELLS,URINE RARE (NONE-FEW); RBC,URINE TOO NUMEROUS TO CT (0-2/HPF)
[2023-10-18] MEDS ORDERED: Iopamidol 755 Mg/ML 100 ML Bottle IVPUSH ONE (01:22)
[2023-10-18] MEDS ORDERED: cefTRIAXone 1 GM in Sodium Chloride 0.9% 50 ML IV ONE (02:25)
[2023-10-18 03:08] VITALS: BP 132/76; PULSE 72
== END 2023-10-18 03:38 | disposition home or self-care (01) ==
LOC: MW.ED 23:07
DX: N39.0 Urinary tract infection, site not specified (principal); N20.0 Calculus of kidney; E78.00 Pure hypercholesterolemia, unspecified; I10 Essential (primary) hypertension; Z79.899 Other long term (current) drug therapy; E66.9 Obesity, unspecified; Z68.34 Body mass index [BMI] 34.0-34.9, adult
CPT/HCPCS: 36415; 74177; 80053; 81001; 85025; 96365; 96375; 99284; J0696; J1885; J2405; J3490; Q9967

== ENCOUNTER 2025-09-13 06:47 | Emergency (ER) | payer MEDICARE, BC ==
[2025-09-13] MEDS ORDERED: Sodium Chloride 0.9% 2.5 ML Syringe FLUSH PRN (06:59)
[2025-09-13] MEDS ORDERED: Sodium Chloride 0.9% 10 ML Syringe FLUSH PRN (06:59)
[2025-09-13 07:19] LABS: MEAN PLATELET VOLUME 9.6 fL (9.4-12.4); NRBC ABSOLUTE 0.00 K/uL (0.00-0.02); NRBC PERCENT 0.0 /100WBC (0.0-0.2); PLATELET COUNT,PLT 185 K/uL (150-400); RED BLOOD CELL COUNT 4.71 M/uL (4.52-5.90); WHITE BLOOD CELL COUNT,WBC 13.59 K/uL (3.9-11.3)
[2025-09-13 07:32] LABS: INR 1.0 (0.86-1.11); PTT,PARTIAL THROMBOPLSTIN TIME 25.4 SEC (23.9-30.7)
[2025-09-13] MEDS: Magnesium Sulfate 2 GM/50 mL 2 GM in Premix Bag 1 BAG IV ONE (07:56)
[2025-09-13 07:58] LABS: EOSINOPHILS ABSOLUTE MAN 0.41 K/uL (0.00-0.45); EOSINOPHILS PERCENT MAN 3 % (0-6); LYMPHOCYTES ABSOLUTE MAN 2.45 K/uL (1.00-4.80); LYMPHOCYTES PERCENT MAN 18 % (24-44); MONOCYTES ABSOLUTE MAN 1.49 K/uL (0.00-0.80); MONOCYTES PERCENT MAN 11 % (0-8); SEG NEUTROPHILS ABSOLUTE MAN 9.24 K/uL (1.80-7.70); SEG NEUTROPHILS PERCENT MAN 68 % (41-71)
[2025-09-13 07:59] LABS: A/G RATIO 0.8 (0.9-1.6); ALANINE AMINOTRANSFERASE,ALT 25 IU/L (14-63); ASPARTATE AMNIOTRANSFERASE,AST 24 IU/L (15-37); BILIRUBIN TOTAL 0.5 mg/dL (0.2-1.0); BLOOD UREA NITROGEN,BUN 31 mg/dL (7.0-18.0); CARBON DIOXIDE,CO2 24.7 mmol/L (21.0-32.0); CHLORIDE,CL 105 mmol/L (98-107); CREATININE 1.0 mg/dL (0.8-1.3); GLUCOSE RANDOM 186 mg/dL (74-106); POTASSIUM,K 4.5 mmol/L (3.5-5.1); PROTEIN TOTAL,TP 6.9 g/dL (6.4-8.2); SODIUM,NA 139 mmol/L (136-148)
[2025-09-13 08:02] LABS: ESTIMATED GFR 82 mL/min (>60)
[2025-09-13 08:11] LABS: LACTIC ACID 1.7 mmol/L (0.4-2.0)
[2025-09-13 08:20] LABS: PRO B-TYPE NATRIUR PEPT,BNPPRO 2366 pg/mL (0-125)
[2025-09-13] MEDS: Iopamidol 755 Mg/ML 100 ML Bottle IVPUSH ONE (09:05)
[2025-09-13] MEDS: Calcium Gluconate 10% 1 GM/10 ML SDV IVPUSH ONE (11:33)
[2025-09-14 06:57] VITALS: BP 152/53; PULSE 44
== END 2025-09-13 12:50 ==
LOC: MW.ED 06:47
DX: I45.9 Conduction disorder, unspecified (principal); R00.1 Bradycardia, unspecified; R79.89 Other specified abnormal findings of blood chemistry
CPT/HCPCS: 36410; 36415; 71045; 71275; 80053; 83605; 83735; 83880; 84484; 85025; 85610; 85730; 93005; 96365; 96375; 99285; J0612; J2765; J3475; Q9967; 93010; J1610

== ENCOUNTER 2025-09-23 18:38 | Emergency (ER) | payer MEDICARE, BC ==
[2025-09-23 19:26] LABS: MEAN PLATELET VOLUME 8.3 fL (9.4-12.4); NRBC ABSOLUTE 0.00 K/uL (0.00-0.02); NRBC PERCENT 0.0 /100WBC (0.0-0.2); PLATELET COUNT,PLT 385 K/uL (150-400); RED BLOOD CELL COUNT 5.71 M/uL (4.52-5.90); WHITE BLOOD CELL COUNT,WBC 13.67 K/uL (3.9-11.3)
[2025-09-23] MEDS: Ondansetron 4 MG/2 ML SDV IVPUSH ONE (19:26)
[2025-09-23 20:06] LABS: BASOPHILS ABSOLUTE MAN 0.14 K/uL (0.00-0.20); BASOPHILS PERCENT MAN 1 % (0-1); EOSINOPHILS ABSOLUTE MAN 0.27 K/uL (0.00-0.45); EOSINOPHILS PERCENT MAN 2 % (0-6); LYMPHOCYTES ABSOLUTE MAN 3.28 K/uL (1.00-4.80); LYMPHOCYTES PERCENT MAN 24 % (24-44); MONOCYTES ABSOLUTE MAN 1.78 K/uL (0.00-0.80); MONOCYTES PERCENT MAN 13 % (0-8); SEG NEUTROPHILS ABSOLUTE MAN 8.20 K/uL (1.80-7.70); SEG NEUTROPHILS PERCENT MAN 60 % (41-71)
[2025-09-23 20:26] LABS: TSH ULTRASENSITIVE 2.23 uIU/mL (0.36-3.74)
[2025-09-23 20:27] LABS: A/G RATIO 0.8 (0.9-1.6); ALANINE AMINOTRANSFERASE,ALT 27 IU/L (14-63); ASPARTATE AMNIOTRANSFERASE,AST 25 IU/L (15-37); BILIRUBIN TOTAL 0.4 mg/dL (0.2-1.0); BLOOD UREA NITROGEN,BUN 37 mg/dL (7.0-18.0); CARBON DIOXIDE,CO2 28.9 mmol/L (21.0-32.0); CHLORIDE,CL 98 mmol/L (98-107); CREATININE 1.0 mg/dL (0.8-1.3); GLUCOSE RANDOM 139 mg/dL (74-106); POTASSIUM,K 3.6 mmol/L (3.5-5.1); PRO B-TYPE NATRIUR PEPT,BNPPRO 288 pg/mL (0-125); PROTEIN TOTAL,TP 8.5 g/dL (6.4-8.2); SODIUM,NA 138 mmol/L (136-148)
[2025-09-23 20:30] LABS: ESTIMATED GFR 82 mL/min (>60); ETHANOL BLOOD MEDICAL < 3.0 mg/dL
[2025-09-23 21:05] LABS: APPEARANCE,URINE CLOUDY; GLUCOSE,URINE >=1000 mg/dL (NEGATIVE); OCCULT BLOOD,URINE LARGE (NEGATIVE)
[2025-09-23 21:12] LABS: EPITHELIAL CELLS,URINE FEW (NONE-FEW)
[2025-09-23 21:15] LABS: AMPHETAMINES SCREEN, URINE NEGATIVE (CUTOFF=500); BUPRENORPHINE SCREEN,URINE NEGATIVE (CUTOFF=10); METHADONE SCREEN, URINE NEGATIVE (CUTOFF=200); METHAMPHETAMINES SCREEN, URINE NEGATIVE (CUTOFF=500); OXYCODONE SCREEN,URINE NEGATIVE (CUT0FF=100); PCP SCREEN,URINE NEGATIVE (CUTOFF=25); THC SCREEN,URINE 20 NG/ML NEGATIVE (CUTOFF=50)
[2025-09-23] MEDS: cefTRIAXone 1 GM in Water For Injection, Sterile 10 ML IVPUSH ONE (22:15)
[2025-09-24 00:10] VITALS: BP 140/60; PULSE 72
== END 2025-09-23 22:27 | disposition home or self-care (01) ==
LOC: MW.ED 18:38
DX: N30.01 Acute cystitis with hematuria (principal); R41.0 Disorientation, unspecified; I25.10 Atherosclerotic heart disease of native coronary artery without angina pectoris; E78.00 Pure hypercholesterolemia, unspecified; I10 Essential (primary) hypertension; E66.9 Obesity, unspecified; Z95.1 Presence of aortocoronary bypass graft; Z79.899 Other long term (current) drug therapy; Z79.84 Long term (current) use of oral hypoglycemic drugs; Z79.02 Long term (current) use of antithrombotics/antiplatelets
CPT/HCPCS: 36415; 70450; 71045; 80053; 80143; 80179; 80305; 80307; 81001; 82140; 82947; 83690; 83880; 84443; 84484; 85025; 87086; 93005; 96361; 96374; 96375; 99285; J0696; J2405; J7030; 93010; 99284